=== PATIENT | female | born 1935 | race Caucasian/White ===

== ENCOUNTER 2016-07-06 08:25 | Day surgery (SDC) | payer OTHER ==
[2016-07-06] MEDS ORDERED: 1/2 NS 500 ML ONE (08:42)
[2016-07-06] MEDS ORDERED: XYLOCAINE 1%/EPI 1:100,000 ONE (11:03)
--- NOTE | 2016-07-06 12:06 | OPERATIVE NOTE ---
PROCEDURE DATE: 07/06/2016 PROCEDURE PERFORMED: Removal of left-sided tunneled dialysis catheter. SURGEON: Maninder Horan MD MEMBERSHIP ADVISOR: Sophie. PREOPERATIVE DIAGNOSIS: Chronic kidney disease, stage 5 with functional access in her right arm. POSTOPERATIVE DIAGNOSIS: Chronic kidney disease, stage 5 with functional access in her right arm. She no longer needs her tunneled catheter. DESCRIPTION OF PROCEDURE: Satisfactory monitoring anesthesia care was established, IV sedation was accomplished. The left upper anterior chest and neck were prepped and draped in a sterile fashion. We anesthetized the skin with 1% lidocaine with epinephrine. In the skin at the exit site, we incised the skin, that was anesthetized and dissected down to the cuff. We freed the cuff circumferentially. After doing that, we are able to deliver the catheter out of the vein without difficulty. We then closed the skin of the incision with a 4-0 Polysorb subcuticular stitch. Telfa and sterile OpSite was applied. She tolerated it well. She was sent to the recovery room in satisfactory condition.
[2016-07-06] MEDS ORDERED: NORCO-10 PO PRN (12:19)
[2016-07-06] MEDS ORDERED: ULTRAM PO PRN (12:19)
[2016-07-06] MEDS ORDERED: SEVELAMER CARBONATE PO SCH (12:19)
[2016-07-06] MEDS ORDERED: VERSED ONE (12:38)
[2016-07-06] MEDS ORDERED: KETAMINE (DOSE) ONE (12:39)
[2016-07-06 12:54] VITALS: BP 138/64
[2016-07-06] MEDS ORDERED: XYLOCAINE-MPF 2% ONE (13:08)
[2016-07-06] MEDS ORDERED: LEVEMIR SUBQ SCH (21:00)
[2016-07-06] MEDS ORDERED: PRAVASTATIN SODIUM 40 MG PO SCH (21:00)
[2016-07-07] MEDS ORDERED: VOLTAREN 1% GEL TOP SCH (09:00)
[2016-07-07] MEDS ORDERED: LINZESS PO SCH (09:00)
[2016-07-07] MEDS ORDERED: CARDIZEM CD PO SCH (09:00)
[2016-07-07] MEDS ORDERED: FAMOTIDINE 40 MG PO SCH (09:00)
[2016-07-07] MEDS ORDERED: MULTIVIT TH IRON OTHER MIN PO SCH (09:00)
[2016-07-08] MEDS ORDERED: PERICOLACE PO SCH (09:00)
== END 2016-07-06 13:00 ==
LOC: OR 08:25
PROVIDERS: ATTEND Surgery
DX: T82.898A Other specified complication of vascular prosthetic devices, implants and grafts, initial encounter (principal); I12.0 Hypertensive chronic kidney disease with stage 5 chronic kidney disease or end stage renal disease; N18.5 Chronic kidney disease, stage 5; E11.9 Type 2 diabetes mellitus without complications; I50.9 Heart failure, unspecified
CPT/HCPCS: 82948; J2250

== ENCOUNTER 2016-08-10 04:50 | Inpatient (IN) ==
[2016-08-10 05:40] LABS: URINE SOURCE CATH
[2016-08-10 05:43] LABS: BASO% 0.1 % (0.0-0.8); EOS# 0.03 X1000 (0.0-0.7); EOS% 0.3 % (0.0-10.0); HEMATOCRIT 35.3 % (37.0-47.0); HEMOGLOBIN 11.1 g/dL (12.0-16.0); IMM GRAN% 19.6 % (0.0-0.5); LYMPH# 0.38 X1000 (1.2-3.4); LYMPH% 4.1 % (20.5-51.1); MANUAL DIFF NEEDED? NO; MCH 31.4 PG (27-31); MCHC 31.4 g/dL (33-37); MCV 99.7 FL (81-99); MONO# 0.02 X1000 (0.11-0.59); MONO% 0.2 % (1.7-9.3); NEUT% 75.7 % (42.2-75.2); PLT 107 X1000 (130-400); RBC 3.54 XMIL (4.2-5.4)
[2016-08-10 05:44] LABS: BILIRUBIN URINE SMALL (NEGATIVE); BLOOD URINE NEGATIVE (NEGATIVE); COLOR YELLOW; GLUCOSE URINE 200 mg/dL (NEGATIVE); LEUKOCYTES URINE NEGATIVE (NEGATIVE); NITRITE URINE NEGATIVE (NEGATIVE); PROTEIN URINE 50 mg/dL (NEGATIVE); SP GRAVITY URINE 1.016; TURBIDITY URINE HAZY (CLEAR); UROBILINOGEN URINE NORMAL (NORMAL)
[2016-08-10 05:45] LABS: URINE MICRO REVIEW NEEDED? YES
[2016-08-10] MEDS ORDERED: AMIDATE IV ONE (05:45)
[2016-08-10] MEDS ORDERED: NS 1,000 ML ONE (05:52)
[2016-08-10] MEDS ORDERED: NS 500 ML IV ONE (05:54)
[2016-08-10 05:57] LABS: ALBUMIN 2.8 g/dL (3.5-5.0); CALCIUM 9.3 mg/dL (8.8-10.2); POTASSIUM 4.9 mmol/L (3.5-5.1); TOTAL BILIRUBIN 6.62 mg/dL (0.20-1.00); TOTAL PROTEIN 6.2 g/dL (6.3-8.3)
[2016-08-10 05:58] LABS: UR EPITHELIAL CELLS >10 /HPF (<10); URINE BACTERIA 2+ /HPF; URINE CULTURE NEEDED? YES; URINE RBC TNTC /HPF (<10)
--- NOTE | 2016-08-10 06:00 | PROVIDER DOCUMENTATION ---
HPI-Abdominal Pain/GI Problem - General Chief Complaint: Abdominal Pain Stated Complaint: abd pain Time Seen by Provider: 08/10/16 05:29 Source: EMS, assisted records, old records Unable to obtain history due to:: altered Allergies/Adverse Reactions: Patient Allergies Allergy/AdvReac Type Severity Reaction Status Date / Time No Known Allergies Allergy Verified 07/06/16 08:48 Home Medications: Home Medication List Medication Instructions Recorded Confirmed Last Taken Type Multivit,Th Iron,Other Min 1 each PO DAILY 06/30/14 07/06/16 07/05/16 History [Thera-M] Sennosides/Docusate Sodium 1 each PO EVERY OTHER DAY 06/30/14 07/06/16 07/05/16 History [Docusate Sodium-Senna Tablet] Diltiazem HCl [Cardizem Cd] 120 mg PO DAILY #0 cap.er.24h 07/19/14 07/06/1606/22 Rx Pravastatin Sodium [Pravachol] 40 mg PO HS #0 07/19/14 07/06/16 07/05/16 Rx Diclofenac 1% Gel [Voltaren 1% Gel] 2 gm TOP DAILY 03/01/15 07/06/16 07/05/16 History Insulin Detemir [Levemir Flextouch] 16 units SQ QHS 03/01/15 07/06/16 07/05/16 History Sevelamer Carbonate [Renvela] 2 tab PO DIRECTED 03/01/15 07/06/16 07/05/16 History Famotidine [Pepcid] 40 mg PO DAILY 04/05/16 07/06/16 07/05/16 History Linaclotide [Linzess] 145 mcg PO DAILY 04/05/16 07/06/16 07/05/16 History Hydrocodone/Acetaminophen [[place] 1 each PO Q4H PRN #20 tablet 04/06/16 07/06/16 07/05/16 Rx 10-325 Tablet] - History of Present Illness-ABD Nature of Presenting Problems: SNF pt found to be obtunded , jjaundiced, and distended prompting transfer to ER. Pt was alert earlier tonight, very conversant, went to hemodialysis yesterday. Abdominal Pain Onset Location: reports: generalized abdomen Last BM: unsure Review of Systems - Adult - REVIEW OF SYSTEMS - ADULT ROS:: unobtainable per condition Constitutional: reports: see HPI Eyes: reports: no symptoms reported Ears, Nose, Mouth & Throat: reports: no symptoms reported Cardiovascular: reports: no symptoms reported Respiratory: reports: see HPI, shortness of breath All Other Systems: Reviewed and Negative Past History - Adult - PAST MEDICAL HISTORY-ADULT Review of Records: reports: Old Records Reviewed, Nursing Assessment Review Cardiovascular: reports: CHF, HTN Gastrointestinal: reports: GERD Neurological: reports: CVA, stroke deficits (Left sided) Endocrine/Immune: reports: Diabetes - PRIOR SURGERIES/PROCEDURES Surgical/Procedure History: reports: none Physical Exam-General - PHYSICAL EXAM-ADULT Initial Vital Signs Reviewed: Yes - CONSTITUTIONAL General Appearance: obtunded - EYES Eyes: PERRL/EOMI, scleral icterus - HEAD, EARS, NOSE, MOUTH & THROAT HENMT: normocephalic/atraumatic, pharynx normal - NECK Neck: full range of motion - RESPIRATORY Respiratory: rhonchi, decreased rate - CARDIOVASCULAR Cardiovascular: regular rate, rhythm - GASTROINTESTINAL (ABDOMEN) Abdominal Exam: abnormal bowel sounds, distended, other (absent bowel sounds) - MUSCULOSKELETAL Peripheral Pulses: radial (R): 1+, radial (L): 1+, dorsalis-pedis (R): 1+, dorsalis-pedis (L): 1+ - SKIN Integumentary: jaundice - NEUROLOGIC Neurologic: negative: grossly normal Progress - PLAN OF CARE/RESULTS Progress/Plan/Lab Results: Vital Signs - 8 hr 08/10/16 04:55 08/10/16 05:43 Temperature 100.6 F H 100.6 F H Pulse Rate 99 H 96 H Respiratory Rate 25 H Blood Pressure 114/60 91/45 O2 Sat by Pulse Oximetry 92 L 100 Laboratory Results - last 24 hr 08/10/16 08/10/16 05:00 05:03 WBC 9.20 RBC 3.54 L Hgb 11.1 L Hct 35.3 L MCV 99.7 H MCH 31.4 H MCHC 31.4 L RDW Std Deviation 13.5 Plt Count 107 L MPV 12.0 H Immature Gran % (Auto) 19.6 H Neut % (Auto) 75.7 H Lymph % (Auto) 4.1 L [place] % (Auto) 0.2 L Eos % (Auto) 0.3 Baso % (Auto) 0.1 Immature Gran # (Auto) 1.80 H Neut # (Auto) 6.96 H Lymph # (Auto) 0.38 L [place] # (Auto) 0.02 L Eos # (Auto) 0.03 Baso # (Auto) 0.01 Urine Source CATH Urine Color YELLOW Urine Turbidity HAZY Urine pH 5.0 Ur Specific [place] 1.016 Urine Protein 50 A Ur Glucose (Stick) 200 A Ur Ketones (Stick) NEGATIVE Urine Blood NEGATIVE Urine Nitrite NEGATIVE Urine Bilirubin SMALL A Urobilinogen Dipstick NORMAL Urine Leukocytes NEGATIVE Orders Category Date Time Status Saline Loc DIRECTED Care 08/10/16 04:56 Active NPO Diet 08/10/16 04:56 Active ABDOMEN/PELVIS W/CONTRAST [CT] Stat Exams 08/10/16 05:36 Ordered CHEST-PORTABLE [RAD] Stat Exams 08/10/16 05:33 Taken HEAD W/O CONTRAST [CT] Stat Exams 08/10/16 05:36 Ordered AMMONIA [CHEM] Stat Lab 08/10/16 05:00 Received AMYLASE [CHEM] Stat Lab 08/10/16 05:03 Received BLOOD CULTURE [BLDCUL] Stat Lab 08/10/16 05:00 Received CBC WITH ELECTRONIC DIFF [HEME] Stat Lab 08/10/16 05:03 Completed COMPREHENSIVE METABOLIC PANEL [CHEM] Stat Lab 08/10/16 05:03 Received LACTATE, PLASMA [CHEM] Stat Lab 08/10/16 05:00 Received LIPASE [CHEM] Stat Lab 08/10/16 05:03 Received URINALYSIS W/POSS RFLX CULT [URINALYSIS] Stat Lab 08/10/16 05:00 Results URINE MANUAL MICROSCOPIC [URINALYSIS] Stat Lab 08/10/16 05:00 Results 0.9% Sodium Chloride Inj [Ns] 500 ml Med 08/10/16 05:52 Discontinued .ROUTE As Directed 0.9% Sodium Chloride Inj [Ns] 500 ml Med 08/10/16 05:54 Active IV 999 mls/hr Etomidate [Amidate] Med 08/10/16 05:45 Discontinued 20 mg IV NOW ONE Result Diagrams: 08/10/16 05:03 08/10/16 05:03 - REASSESSMENT Reassessment #1 Time Reassessed: 06:30 Status: worsening Reassessment Comment: hypotensive, lactate 10, abdomen distended, CT pending. Needs good IV ang Reassessment #2 Time Reassessed: 07:20 Status: unchanged (Talked to pt's family for pt's status and informed that pt's critical situation. Consulted Dr. Dominguez, nurse monitoring surgeon, will come to ER to talk to family for patient.) - XRAY 1 XRAY Study: Chest Impression: Abnormal, See EMR Report (ET tube in good position, bilateral effusions) - CT/MRI 1 CT Study: Abdomen, other (Radiologist called - large gas-forming R liver lobe abscess, free air in the abd. Can not determine the source of the free air, and can not r/o bowel perforation.) Impression: Abnormal CT Results: Free air throughout abdoment consistent with viscous perforation - CONSULTS/PCP/HOSPITALIST Notification Time Discussed: 08:02 Reason/Comments: Admit to hospitalist ICU Consult Disposition: Admit - CHANGE OF SHIFT REPORT (ED Provider) Report Given and Care Transferred to:: Dr Milian Procedures - CENTRAL LINE Time-Out Verification Completed?: Yes Central Line Lumen: triple Central Line Procedure Prep: Hand Hygeine Performed, Kit Utilized, Chloraprep, Sterile Body Drape Placed, Antibiotic-coated Catheter Used Patient Position (To prevent Air Embolism): Supine (Femoral) Central Line Position: femoral (R) Ultrasound Guided?: No Hat, mask, sterile gown, & sterile gloves worn by physician?: Yes Site scrubbed vigorously for 30 seconds? (Groin: 2 min): Yes Anesthetic: 1%, Lidocaine/Xylocaine Volume of Anesthetic (ml's): 1 Post Procedure: Sutured in place, Sterile field maintained, BioPatch placed, Sterile dressing applied, Blood aspirated from each lumen - INTUBATION Airway Evaluation: Obese Mallampati Class: 2 Intubation Method: orotracheal Equipment: Glidescope Tube Size (cm): 7.5 Pretreated with 100% Oxygen?: Yes Breath Sounds after Intubation: equal ETT Primary Tube Confirmation: Capnometry CO2 Change, Direct Visualization, Chest Rise and Fall, Tube placement verified on XRAY Intubation Complications: no complications Vent Settings: See Respiratory Therapy Notes Departure - Departure Time of Disposition Decision: 08:02 DIAGNOSIS: Perforated viscus Hypotension Qualifiers: Hypotension type: other hypotension type Qualified Code(s): I95.89 - Other hypotension Disposition: ADMITTED INPATIENT 09 Certified Medical Emergency: Emergent Condition: Critical Referrals and Follow-Ups: Bryan Boykin [Primary Care Provider] -
[2016-08-10] MEDS ORDERED: HUMULIN R IV ONE (06:02)
[2016-08-10 06:08] LABS: URINE CASTS GRANULAR PRESENT
[2016-08-10 06:12] LABS: ALLEN TEST YES; BE -15.9 mmoll (-3.0-3.0); BLOOD TYPE ARTERIAL; DRAW SITE R RADIAL; METHB 1.1 % (0.0-1.5); O2(CT) 15.6 mL/dL (15.0-23.0); PCO2(98.6) 25 mmHg (35-45); PO2(98.6) 385 mmHg (60-100); SAMPLE BLOOD; SAO2 98.7 % (95.0-100.0); SRATE 14 BPM; THB 10.8 g/dL (11.5-17.4); TVOL 600 mL; pH(98.6) 7.22 (7.35-7.45)
[2016-08-10 06:13] LABS: MODALITY VENTILATOR
[2016-08-10] MEDS ORDERED: VANCOMYCIN 1 GM/NS 1 GM/250 ML IVPB IV ONE (06:15)
[2016-08-10] MEDS ORDERED: ZOSYN 3.375 GM/NS 3.375 GM/50 ML IVPB IV ONE (06:18)
[2016-08-10] MEDS ORDERED: DIPRIVAN 1% 1,000 MG/100 ML BOTTLE IV SCH (07:18)
--- NOTE | 2016-08-10 07:23 | Diag Imaging Result Document ---
PROCEDURE NAME: HEAD W/O CONTRAST - 08/10/[address]: A CT dose reduction protocol was used. COMPARISON: 06/30/2014. FINDINGS: There is stable mild periventricular white matter chronic microvascular disease. No intracranial mass or hemorrhage. The ventricles and sulci are normal in size and contour. The skull is intact. The sinuses, mastoids, and middle ears are clear. IMPRESSION: No acute disease or change from prior. [facility]
--- NOTE | 2016-08-10 07:35 | Diag Imaging Result Document ---
PROCEDURE NAME: ABDOMEN/PELVIS W/CONTRAST - 08/10/2016 CT ABDOMEN AND PELVIS WITH INTRAVENOUS CONTRAST: A CT dose reduction protocol was used. COMPARISON: 06/30/2014. FINDINGS: There is extensive pneumoperitoneum. Within the dome of the right lobe of the liver, there is a large necrotic air and debris cavity. This has replaced the large amount of the liver parenchyma here. This measures about 12.7 x 8.7 cm in AP and lateral dimensions. There is some trace fluid and debris in Andrews's pouch as well. There is extensive portal venous gas peripheral to this lesion. Stable gallstones in the gallbladder. No significant gallbladder distention or inflammation. Blanchard catheter in the urinary bladder. There is severe calcified vascular disease of the aorta and all of its branches. Kidneys are grossly normal in size. The pancreas, spleen, and adrenals are normal. No bowel obstruction. Mild rectal stool impaction with a stool ball measuring 6 cm. Uterus is normal. Degenerative changes of the bones. No acute bony lesions. There is some hazy atelectasis or infiltrate in the left lower lobe. IMPRESSION: 1. Extremely large necrotic cavity consistent with an abscess in the dome of the liver. 2. Left lower lobe infiltrate versus atelectasis. 3. Pneumoperitoneum. [facility]
[2016-08-10] MEDS: LEVOPHED 8 MG in D5 1/2 NS 250 ML IV SCH ×2 (07:36→13:49)
[2016-08-10] MEDS ORDERED: NEO-SYNEPHRINE 50 MG in NS 250 ML IV SCH (09:30)
--- NOTE | 2016-08-10 09:35 | Diag Imaging Result Document ---
PROCEDURE NAME: CHEST-PORTABLE - 08/10/2016 SINGLE FRONTAL RADIOGRAPH OF THE CHEST: COMPARISON: 07/19/2014. FINDINGS: The patient is significantly rotated toward the left. There has been interval placement of an ET tube. The tip projects over the trachea and above the kurt at about the T4 level. The right Vas-Cath has been removed. There is an NG tube that projects below the diaphragm and out of the field of view. There is stable blunting of the left hemidiaphragm suggesting chronic atelectasis most likely given its stability. No new consolidation is appreciated. Cardiac silhouette is stable. IMPRESSION: Interval placement of ET tube and NG tube as described with removal of the right vas cath, seen previously. Otherwise, the chest is stable.
[2016-08-10 10:26] LABS: ALLEN TEST NO; BE -12.8 mmoll (-3.0-3.0); BLOOD TYPE ARTERIAL; DRAW SITE R BRACHIAL; METHB 1.3 % (0.0-1.5); O2(CT) 15.1 mL/dL (15.0-23.0); PCO2(98.6) 29 mmHg (35-45); PO2(98.6) 400 mmHg (60-100); SAMPLE BLOOD; SAO2 99.2 % (95.0-100.0); SRATE 14 BPM; THB 10.3 g/dL (11.5-17.4); TVOL 600 mL; pH(98.6) 7.26 (7.35-7.45)
--- NOTE | 2016-08-10 10:29 | HISTORY AND PHYSICAL ---
CHIEF COMPLAINT: Obtundation and abdominal pain. HISTORY OF PRESENT ILLNESS: Ms. Stanley is a very unfortunate 81-year-old female with a history of ESRD on hemodialysis, Saturday and Saturday, followed by Dr. Arriaga. She also has a history of hypertension, diabetes, chronic atrial fibrillation and GERD who presents emergently from her [facility] with obtundation, significant abdominal distention and jaundice. At this time, the patient is intubated and sedated. History is obtained per chart review and from family who was at the bedside. Apparently, she went to dialysis yesterday and was in her normal state of health. However, this morning, she was found obtunded and just prior to, she was screaming in pain,apparently abdominal in nature. She was found jaundiced and was emergently transferred to there ER here. She was hypotensive and obtunded requiring emergent intubation. A CT of the abdomen and pelvis revealed a very large liver abscess at the dome of the liver which was necrotic and there was also pneumoperitoneum noted. A lactic acid was drawn and found to be 10.4, and the patient is hypotensive, requiring pressors. Dr. Dominguez with surgery has already been consulted and feels that she is not a candidate for surgery as she would likely not survive an invasive procedure such as this. As such, we have discussed this with the family, and they have requested that she be a DNR level 1. Broad-spectrum antibiotics have been initiated and cultures are pending. She will be going to the ICU in critical condition. PAST MEDICAL HISTORY: 1. ESRD on hemodialysis, Saturday, , Saturday. 2. Diabetes mellitus. 3. Hypertension. 4. GERD. 5. Chronic atrial fibrillation. PAST SURGICAL HISTORY: She has recently had a dialysis catheter removed and she has also had a fistula construction. SOCIAL HISTORY: There is no apparent history of tobacco, alcohol or drug use. She lives at [facility]. Her family is at the bedside. FAMILY HISTORY: Noncontributory. REVIEW OF SYSTEMS: Unable to be obtained. ALLERGIES: No known drug allergies. HOME MEDICATIONS: Voltaren gel as directed, Cardizem 120 mg ER daily, Pepcid 40 mg daily, [place] 10, as directed, Levemir Flexitouch 16 units subcutaneously at bedtime, Linzess 145 mcg daily, Thera-M vitamin 1 daily, Pravachol 40 mg at bedtime, Colace and sennoside daily , Renvela 1600 mg as directed. PHYSICAL EXAMINATION: VITAL SIGNS: Blood pressure is 72/60, heart rate is 90, respiratory rate is 22 , O2 saturation 100% on mechanical ventilation. Temperature is 97.7 degrees. GENERAL: This is an obese female, lying in hospital bed intubated and sedated. NEUROLOGIC: The patient is intubated and sedated. HEENT: Head is atraumatic and normocephalic. Her pupils are equal, round and reactive to light. Her oral mucosa is dry. ET tube and NG tube are noted. Trachea is midline. CHEST: Coarse bilaterally with mechanical ventilatory sounds. Diminished at the bases. GI: Distended with hypoactive to no bowel sounds heard throughout. EXTREMITIES: Without edema, clubbing or cyanosis. DIAGNOSTIC DATA: Head CT shows chronic changes. Nothing acute. Abdomen and pelvis CT shows extremely large necrotic cavity consistent with an abscess in the dome of the liver. Left lower lobe infiltrate versus atelectasis. A pneumoperitoneum. Post intubation chest x-ray shows ET tube and NG tube in good position. WBC 9.2, hemoglobin 11.1, hematocrit 35.3, platelet count is 107,000. ABG on 100% mechanical ventilation. PH 7.22, CO2 25, PO2 385, bicarb 12.5. Sodium 135, potassium 4.9 , chloride 91, CO2 15, anion gap 29, BUN 108, creatinine 3.7, glucose 379, total bilirubin 6.62, AST 836, ALT 844, alkaline phosphatase 430, ammonia is 40, albumin 2.8, lactic acid is 8.7. UA is unremarkable. ASSESSMENT AND PLAN: 1. Septic shock: Source is her liver abscess and pneumoperitoneum. Blood cultures have been obtained and broad-spectrum antibiotics have been initiated. We are going to consult Dr. Aviles with Infectious Disease for appropriate antibiotic management. In the meantime, we will cover methicillin-resistant Staphylococcus aureus with vancomycin and intra-abdominal infection with meropenem, renally dosed. We will continue fluid resuscitation and fluid volume management will be managed per Dr. Arriaga with Nephrology given her end-stage renal disease. 2. Liver abscess with pneumoperitoneum: The patient is not a surgical candidate. Dr. Dominguez has already seen the patient. We will continue with antibiotics and nasogastric tube placement. 3. Severely elevated liver function tests: Likely a combination of sepsis and liver abscess. We are continuing with broad-spectrum antibiotics and we will trend her liver functions daily. 4. Significant anion gap metabolic acidosis: Most likely secondary to her lactic acidosis on top of end-stage renal disease. We are going to trend her lactate every 6 hours and continue the treatment of her sepsis. Obviously the patient is critically ill. 5. ESRD on HD: Dr. Arriaga has been consulted. We follow electrolytes, fluid balance and H&H closely. 6. Diabetes mellitus: We are going to add pattern sugars and sliding scale insulin. 7. The patient is critically ill. Her prognosis is extremely poor. We have spoken with the patient's family at length and they understand that she is not a surgical candidate and that her chance of dying is extremely high. They have made her a DNR level 1. 8. For deep vein thrombosis prophylaxis, we are going to add sequential compression devices and thromboembolic disease stockings and Protonix for gastrointestinal prophylaxis given her intubation. Further recommendations to follow. TIME SPENT: Critical care time with this patient is 45 minutes. Dictated by ROCIO Andrade for Boris Butts MD cc: ROCIO Andrade MD MTDD
[2016-08-10 10:30] LABS: MODALITY VENTILATOR
[2016-08-10 11:45] LABS: ALBUMIN 2.7 g/dL (3.5-5.0); CALCIUM 9.2 mg/dL (8.8-10.2); POTASSIUM 4.3 mmol/L (3.5-5.1); TOTAL BILIRUBIN 9.33 mg/dL (0.20-1.00)
--- NOTE | 2016-08-10 13:17 | CONSULTATION ---
DATE OF CONSULTATION: 08/10/2016 HISTORY OF PRESENT ILLNESS: This is an 81-year-old female who has multiple medical issues, diabetes, end-stage renal disease for several years and is within a nursing institution for her chronic debilitated state who over last couple days has become more altered as far as mental status and in obvious discomfort prompting ER visit last night. She was found to be hypotensive with blood pressures in the 70s over 30s. She was altered, not protecting her airway. She was intubated and started on vasopressors. Central line was placed. A CT scan was obtained. The CT scan showed a large gas containing fluid collection in the right lobe of the liver with some adjacent intraperitoneal air but no obvious signs of perforated viscus. The abscess involves most of the right lobe of the liver. PAST MEDICAL HISTORY: 1. Diabetes. 2. Two years ago a prolonged hospitalization for pneumonia and multiple exacerbations of medical illnesses that had a prolonged ICU stay. 3. History of stroke with left hemiparesis. 4. Hypertension. 5. Dyslipidemia. 6. End-stage renal disease. PAST SURGICAL HISTORY: She has had multiple IV access procedures 1 of which is an upper arm graft on the right. REVIEW OF SYSTEMS: Ten point negative other than what was mentioned. FAMILY HISTORY: Negative for cancer. Vital Signs: Temperature is T-max 100.6 degrees here in the ER pulse 93, blood pressure 140/70. General: She is sedated. Does appear to move her upper extremities some to pain. Cardiovascular: Normal rate, regular rhythm. Pulmonary: She is on 100%, PEEP of 5. Endotracheal tube in place. Abdomen: Is soft. She does wince with right upper quadrant palpation but there is no stewart peritonitis. I do not see any scars. She is quite protuberant. Skin is clammy and cool. There is a right upper arm graft, AV graft with no obvious thrill or pulse but extremities seem well perfused. LABS: White count is 9, hematocrit 35, platelets are 107,000. ABG 7.22, 25, 385, 12. Creatinine 3.7. Sodium is 135, potassium 4.9. Bilirubin is elevated at 6.62. AST 836, ALT 844, alkaline phosphatase 430. Lactate was 8.7. Urinalysis showed some glucose but negative for leukocytes or nitrates. ASSESSMENT AND PLAN: An 81-year-old female with a large right lobe of the liver abscess of unclear etiology. I think her pneumoperitoneum is related to this. Her abdomen is soft. I do not see any stewart signs of peritonitis and she is quite debilitated and ill chronically. I talked to the family. A long discussion. Recommend against surgical exploration at this time. She has been admitted to the Medicine Service, ICU. Recommend broad-spectrum antibiotics, workup of this liver cyst and as she stabilizes percutaneous drainage with Interventional Radiology. We will continue to follow along. I think she will progress towards palliative. The family seems to be leaning in this direction with our discussions today but would recommend engaging them as well. cc: Misty Dominguez MD MTDD
[2016-08-10] MEDS ORDERED: SODIUM BICARBONATE 8.4% 150 MEQ in D5W 1,000 ML IV SCH (13:32)
[2016-08-10 14:16] VITALS: BP 72/50
[2016-08-10] MEDS ORDERED: SOLU-CORTEF IV ONE (14:43)
[2016-08-10] MEDS ORDERED: EPINEPHRINE 4 MG in NS 250 ML IV SCH (15:00)
--- NOTE | 2016-08-10 15:16 | PROGRESS NOTE ---
DATE: 08/10/2016 SUBJECTIVE: Today I saw Ms. Stanley around 2 this afternoon, she had about 5 family members in the room as well. She was unable to give any interval history. Understanding is that she has been having some abdominal discomfort and she became altered so she was brought in to the emergency room, was found to be extremely hypotensive and septic and a CT scan did show abscess to some large necrotic cavity consistent with abscess in the dome of the liver, left lower lobe infiltrate versus atelectasis and pneumoperitoneum. The patient was admitted. Patient was seen and evaluated by the nurse practitioner. I reviewed the labs early on today and I wanted to see her now. OBJECTIVE: Vital signs: Blood pressure 72/50, pulse of 78, respirations 16 and patient was on mechanical ventilator. General: Ms. Stanley is an 81-year-old female. She was in bed intubated and sedated on propofol. She was synchronizing well and she did not seem to be in any distress. She was completely unresponsive. Mucus was pink. The extremities were dusted studded with very poor perfusion. Chest: Air entry was bilaterally reduced. Some transmitted sounds from the ventilator. The patient was not showing any respiratory efforts. Cardiovascular: Regular rate and rhythm. No murmurs, no rubs. No gallops. Abdomen: Distended , soft. Bowel sounds are hypoactive. PREDATORY ANIMAL TRAPPER: Patient is unresponsive . Pupils are extremely sluggish. LABORATORY DATA: WBC is 9.20, hemoglobin 11.1, platelet count of 107,000. Chemistry. Sodium is 135, potassium is 4.3, chloride 95, bicarb is 14 with a gap of 29, BUN is 110, creatinine is 3.8, total bilirubin is up 9.33, AST is up 2164, ALT is up 1539, alkaline phosphatase is 432. Plasma lactate is 10; pH is 7.26, pCO2 is 29, PaO2 is 400. The patient is currently on epinephrine and not AP drips as well as phenylephrine on standby. She is on sodium bicarb in D5 going at 75 mL/h. She has been given Zosyn and vancomycin. ASSESSMENT: 1. Intractable septic shock. Patient is currently on 2 different types of pressors, has not responded. She is showing active signs of dying from fulminant septic shock. 2. Multiorgan failure secondary to fulminant septic shock. 3. High anion gap metabolic acidosis secondary to lactic acid. 4. Comatose likely due to sepsis and uremic encephalopathy. 5. Severe lactic acidosis. 6. Transaminitis secondary to shock liver and liver abscess. 7. Liver abscess, driving the entire septic picture. 8. End-stage renal disease on hemodialysis. 9. Diabetes mellitus. PLAN: 1. In general, I think Ms. Stanley is extremely sick and carries extreme poor prognosis with high mortality. She is in fulminant sepsis with multiorgan failure and she is showing active signs of dying. She is currently losing her systolic blood pressure. I do not think she is going to survive this hospitalization. Maybe she will probably in couple minutes or hours from now. I communicated my findings to the family members who were in the room and they were all in the in agreement. At this point Ms. Stanley is do not resuscitate level 1. 2. I will give her a bolus of 1000 mL of fluid and give her a stress dose of hydrocortisone and continue with the current antibiotic coverage with the ventilator support. cc: Boris Butts MD [facility]
--- NOTE | 2016-08-10 15:54 | CONSULTATION ---
DATE OF CONSULTATION: 08/10/2016 REASON FOR CONSULTATION: Assistance with management. HISTORY OF PRESENT ILLNESS: Ms. Go is an 81-year-old white female who is known to me. She has diabetes, atrial fibrillation, hypertension, end-stage kidney disease. She was brought in from the half-way because of the abdominal distention, obtundation and intractable pain. Her emergency room evaluation disclosed a large mass in the liver that was consistent with a necrotizing cavitary lesion or abscess. Also, pneumoperitoneum was present. She was evaluated by Surgery, but not felt to be a surgical candidate because of her profound septic shock and hypotension. Based on this, she has been placed on broad-spectrum empiric antibiotics, vasopressors and ventilator support. She has plans to be transferred to the intensive care unit, and if she improves clinically, the family will consider further intervention. PAST MEDICAL HISTORY: As above. SOCIAL HISTORY: Resides at [facility]. She has family at the bedside. Her son speaks for her. FAMILY HISTORY: Otherwise, not available. REVIEW OF SYSTEMS: Otherwise, not available. PHYSICAL EXAMINATION: Vital Signs: Blood pressure 112/67, heart rate 98, respiration 18, temperature maximum 100.6 degrees. General: She is an elderly woman on the ventilator, unresponsive. Skin is pale and dry. Conjunctivae are pink. Oropharynx is dry. Neck: Neck veins are not appreciated. Heart: Irregular and tachycardic. Lungs: Equal with scattered crackles. Abdomen: Obese and soft. Bowel sounds are appreciated. Extremities: No significant edema. LABORATORY DATA: Reviewed. IMPRESSION: Acute sepsis syndrome associated with an abdominal abscess and pneumoperitoneum. Very high mortality. Certainly, she is not a candidate for dialysis at this time and actually does not have any acute indications. We will re-evaluate in the morning. The family states they would accept dialysis if she is clinically more stable. Unfortunately, because of her abdominal disease, her condition will likely deteriorate. cc: Andrews Arriaga MD
[2016-08-10] MEDS ORDERED: VANCOMYCIN IV PER PHARMACY MISC SCH (16:01)
[2016-08-10] MEDS ORDERED: DUONEB (A & A) INH SCH (16:01)
[2016-08-10] MEDS ORDERED: DUONEB (A & A) INH PRN (16:01)
[2016-08-10] MEDS ORDERED: PROTONIX IV SCH (16:01)
[2016-08-10] MEDS ORDERED: HUMALOG SUBQ SCH (16:01)
[2016-08-10] MEDS ORDERED: SODIUM CHLORIDE 0.9% INJ SCH (16:01)
[2016-08-10] MEDS ORDERED: MERREM 500 MG in NS 50 ML IV SCH (17:00)
[2016-08-10] MEDS ORDERED: SOLU-CORTEF IV SCH (17:00)
[2016-08-10] MEDS ORDERED: VANCOMYCIN 1,200 MG in NS 250 ML IV ONE (18:00)
[2016-08-10] MEDS ORDERED: LEVAQUIN 750 MG/D5W 750 MG/150 ML IVPB IV SCH (20:00)
--- NOTE | 2016-08-13 04:35 | DISCHARGE SUMMARY ---
ADMISSION DATE: 08/10/2016 DISCHARGE DATE: 08/10/2016 DATE OF : 08/10/2016 TIME OF : 17:36 DIAGNOSES AT THE TIME OF : 1. Intractable septic shock. 2. Multi organ failure secondary to fulminant septic shock. 3. High anion gap metabolic acidosis. 4. Severe lactic acidosis. 5. Comatose due to sepsis and uremic encephalopathy. 6. Transaminitis secondary to shocked liver and liver abscess. 7. Severe fulminant liver abscess. 8. Endstage renal disease on hemodialysis. 9. Diabetes mellitus. 10. Escherichia coli septicemia. CONSULTATION DURING THIS ADMISSION: 1. Surgery was consulted. Patient was seen by Dr. Misty Dominguez. 2. Marine Electronics Technician was consulted. Patient was seen by Dr. Andrews Arriaga. PRESENTING COMPLAINT: Obtundation and abdominal pain. HISTORY OF PRESENTING COMPLAINT: Ms. Stanley is an 81-year-old female, resident of assisted living, who was complaining of some abdominal pain for some time and was found obtunded today and the EMS brought her to the emergency department. Upon presentation, the patient was found to be hypotensive, with blood pressures 95/45, was febrile, with a temperature of 100.6 degrees and tachycardic. The patient was saturating about 92% in room air. The patient was immediately intubated for respiratory failure and we were consulted. HOSPITAL COURSE: The patient deteriorated and declined extremely rapidly. A CT scan of the abdomen and pelvis, which was done, did show extremely large necrotic cavity consistent with abscess in the dome of the liver. There was also the pneumoperitoneum. Surgery was consulted; however, Dr. Dominguez thought that the patient was too sick and to unstable for any surgical intervention and that we should continue with antibiotics. The patient was given multiple rounds of fluid resuscitation, steroids, and broad-spectrum antibiotics. However, her clinical picture just continued to decline. The family did make her DNR Level 1. Patient was eventually transferred to the ICU; however, she did not stay that long until she . Today I reviewed the labs and her blood culture was positive for Escherichia coli and the patient was actually getting antibiotics that should have covered it, but I think she came in too late for any improvement. Therefore, she a couple hours after presentation and was pronounced in the ICU by 2 nurses at 17:36. cc: Boris Butts MD
[2016-08-15] MEDS ORDERED: VANCOMYCIN 1 GM/NS 1 GM/250 ML IVPB IV SCH (18:00)
== END 2016-08-10 17:28 | disposition expired ==
LOC: ED 04:50 → ICU 09:47
PROVIDERS: ATTEND Internal Medicine